=== PATIENT | female | born 1975 | race African-American/Black ===

== ENCOUNTER 2016-03-15 17:04 | Emergency (ER) | payer OTHER ==
[~2016-03-15] VITALS: Ht 167.6 cm; Wt 81.5 kg
[~2016-03-15 17:04] MED LIST: NOCURR
[2016-03-15] MEDS ORDERED: HYDROCODONE/ACETAMINOPHEN 10-325 MG TABLET PO ONE (18:15)
[2016-03-15] MEDS ORDERED: PERTUSS(ACELL),DIPH,TET VAC/PF 0.5 ML VIAL IM ONE (19:00)
[2016-03-15 19:08] VITALS: BP 136/74
== END 2016-03-15 19:41 | disposition short-term general hospital (02) ==
LOC: EMS 17:06
DX: T23.261A Burn of second degree of back of right hand, initial encounter (principal); T21.29XA Burn of second degree of other site of trunk, initial encounter; T21.24XA Burn of second degree of lower back, initial encounter; T31.0 Burns involving less than 10% of body surface; T79.9XXA Unspecified early complication of trauma, initial encounter; Z91.040 Latex allergy status; F17.210 Nicotine dependence, cigarettes, uncomplicated; X08.8XXA Exposure to other specified smoke, fire and flames, initial encounter; Y93.89 Activity, other specified; Y92.098 Other place in other non-institutional residence as the place of occurrence of the external cause; Y99.8 Other external cause status
CPT/HCPCS: 16000; 90471; 90715; 99285